=== PATIENT | female | born 1955 | race Caucasian/White ===

== ENCOUNTER 2017-12-04 13:15 | Inpatient (IN) | payer BC, OTHER ==
[2017-12-04] MEDS ORDERED: NORMAL SALINE 1000 ML 2,000 ML IV ONE (13:30)
--- NOTE | 2017-12-04 13:33 | ER Document Report ---
ED Medical Screen (RME) - General Chief Complaint: Nausea/Vomiting/Diarrhea Stated Complaint: BACK PAIN, DIARRHEA Time Seen by Provider: 12/04/17 13:29 Mode of Arrival: Wheelchair Information source: Patient Notes: 62 yo female with vomiting, diarrhea, back pain for 4 days. Pale. Also having trouble breathing- hx copd. hypotensive. Will need imaging but /chestabd exam needs to be done first. TRAVEL OUTSIDE OF THE [place] IN LAST 30 DAYS: No - Related Data Allergies/Adverse Reactions: No Known Drug Allergies Allergy (Verified 11/01/15 10:52) Past Medical History - Past Medical History Cardiac Medical History: Reports: Hx Heart Attack - NSTEMI? Pulmonary Medical History: Reports: Hx Bronchitis, Hx COPD GI Medical History: Reports: Hx Hepatitis - Hepatitis C Psychiatric Medical History: Reports: Hx Depression Infectious Medical History: Reports: Hx Hepatitis - Hepatitis C Past Surgical History: Reports: Hx Section, Hx Thyroid Surgery - Immunizations Hx Diphtheria, Pertussis, Tetanus Vaccination: - Unknown Physical Exam - Vital signs Vitals: Temp Pulse Resp BP Pulse Ox 98.4 F 113 H 20 70/54 L 100 12/04/17 13:19 12/04/17 13:19 12/04/17 13:19 12/04/17 13:19 12/04/17 13:19 Course - Vital Signs Vital signs: Temp Pulse Resp BP Pulse Ox 98.4 F 113 H 20 70/54 L 100 12/04/17 13:19 12/04/17 13:19 12/04/17 13:19 12/04/17 13:19 12/04/17 13:19 Doctor's Discharge - Discharge Referrals: LUCIANA SANCHEZ MD [Primary Care Provider] - Follow up as needed
[2017-12-04 14:23] LABS: VENOUS BLOOD BASE EXCESS -4.4 mmol/L; VENOUS BLOOD HCO3 20.6 mmol/L (20-32); VENOUS BLOOD PCO2 37.6 mmHg (35-63); VENOUS BLOOD PH 7.36 (7.30-7.42)
[2017-12-04 14:31] LABS: HEMATOCRIT 33.5 % (36.0-47.0); HEMOGLOBIN 11.6 g/dL (12.0-15.5); MEAN CORPUSCULAR HEMOGLOBIN 34.1 pg (27.0-33.4); MEAN CORPUSCULAR HGB CONC 34.6 g/dL (32.0-36.0); MEAN CORPUSCULAR VOLUME 98 fl (80-97); PLATELET COUNT 326 10^3/uL (150-450); RED CELL DISTRIBUTION WIDTH 12.5 % (11.5-14.0); WHITE BLOOD COUNT 20.5 10^3/uL (4.0-10.5)
[2017-12-04 14:38] LABS: ALANINE AMINOTRANSFERASE 32 U/L (9-52); ALBUMIN 3.5 g/dL (3.5-5.0); ALKALINE PHOSPHATASE 88 U/L (38-126); ANION GAP 16 (5-19); ASPARTATE AMINO TRANSFERASE 17 U/L (14-36); BILIRUBIN,DIRECT 0.7 mg/dL (0.0-0.4); BILIRUBIN,TOTAL 2.8 mg/dL (0.2-1.3); BLOOD UREA NITROGEN 31 mg/dL (7-20); CALCIUM 9.3 mg/dL (8.4-10.2); CARBON DIOXIDE 20 mmol/L (22-30); CHLORIDE 100 mmol/L (98-107); GLUCOSE 105 mg/dL (75-110); POTASSIUM 3.8 mmol/L (3.6-5.0); SODIUM 135.6 mmol/L (137-145); TOTAL PROTEIN 6.5 g/dL (6.3-8.2)
[2017-12-04 14:45] LABS: LIPASE < 10.0 U/L (23-300)
[2017-12-04 14:53] LABS: ABSOLUTE LYMPHOCYTES# (MANUAL) 0.6 10^3/uL (0.5-4.7); ABSOLUTE MONOCYTES # (MANUAL) 0.6 10^3/uL (0.1-1.4); ABSOLUTE NEUTROPHILS# (MANUAL) 19.3 10^3/uL (1.7-8.2); BAND NEUTROPHILS % (MANUAL) 8 % (3-5); BASOPHILS % (MANUAL) 0 % (0-2); EOSINOPHILS % (MANUAL) 0 % (0-6); LYMPHOCYTES % (MANUAL) 3 % (13-45); MONOCYTES % (MANUAL) 3 % (3-13); SEGMENTED NEUTROPHILS % (MAN) 86 % (42-78); TOTAL CELLS COUNTED 100
[2017-12-04 14:54] LABS: PLATELET COMMENT ADEQUATE; PLATELET GIANT PRESENT; POLYCHROMASIA SLIGHT
[2017-12-04] MEDS ORDERED: NORMAL SALINE 1000 ML 1,000 ML IV ONE (15:42)
[2017-12-04] MEDS ORDERED: PIPERACILLIN/TAZOBACTAM 3.375 GM VIAL IV ONE (15:42)
[2017-12-04] MEDS ORDERED: ONDANSETRON HCL INJ/PF 4 MG/2 ML SDV IV ONE (15:47)
--- NOTE | 2017-12-04 15:51 | ER Document Report ---
ED General - General Chief Complaint: Nausea/Vomiting/Diarrhea Stated Complaint: BACK PAIN, DIARRHEA Time Seen by Provider: 12/04/17 13:29 Mode of Arrival: Wheelchair Information source: Patient, Relative TRAVEL OUTSIDE OF THE [place] IN LAST 30 DAYS: No - HPI Onset: Other - 3 days Onset/Duration: Gradual, Constant Quality of pain: No pain Severity: None Pain Level: Denies Associated symptoms: Diarrhea, Nausea, Vomiting Exacerbated by: Denies Relieved by: Denies Similar symptoms previously: No Recently seen / treated by doctor: No - Related Data Allergies/Adverse Reactions: No Known Drug Allergies Allergy (Verified 11/01/15 10:52) Past Medical History - General Information source: Patient - Social History Smoking Status: Unknown if Ever Smoked Family History: Reviewed & Not Pertinent Patient has suicidal ideation: No Patient has homicidal ideation: No - Past Medical History Cardiac Medical History: Reports: Hx Heart Attack - NSTEMI? Pulmonary Medical History: Reports: Hx Bronchitis, Hx COPD Renal/ Medical History: Denies: Hx Peritoneal Dialysis GI Medical History: Reports: Hx Hepatitis - Hepatitis C Psychiatric Medical History: Reports: Hx Depression Infectious Medical History: Reports: Hx Hepatitis - Hepatitis C Past Surgical History: Reports: Hx Section, Hx Thyroid Surgery - Immunizations Hx Diphtheria, Pertussis, Tetanus Vaccination: - Unknown Hx Pneumococcal Vaccination: 04/05/15 Review of Systems - Review of Systems Constitutional: Weakness. denies: Chills, Fever EENT: No symptoms reported Cardiovascular: denies: Chest pain, Palpitations Respiratory: Short of breath Gastrointestinal: Diarrhea, Nausea, Vomiting. denies: Abdomen distended, Abdominal pain Genitourinary: No symptoms reported Female Genitourinary: No symptoms reported Musculoskeletal: Back pain. denies: Muscle pain, Muscle stiffness Skin: No symptoms reported Hematologic/Lymphatic: denies: Easy bleeding, Easy bruising Neurological/Psychological: No symptoms reported -: Yes All other systems reviewed and negative Physical Exam - Vital signs Vitals: Temp Pulse Resp BP Pulse Ox 98.4 F 113 H 20 70/54 L 100 12/04/17 13:19 12/04/17 13:19 12/04/17 13:19 12/04/17 13:19 12/04/17 13:19 Interpretation: Hypotensive - General General appearance: Alert In distress: None - HEENT Head: Normocephalic, Atraumatic Eyes: Normal Conjunctiva: Normal Cornea: Normal Extraocular movements intact: Yes Eyelashes: Normal Sinus: Normal Nasal: Normal Mucous membranes: Dry Pharynx: Normal Neck: Normal - Respiratory Respiratory status: No respiratory distress Chest status: Nontender Breath sounds: Normal Chest palpation: Normal - Cardiovascular Rhythm: Tachycardia Heart sounds: Normal auscultation Murmur: No Normal capillary refill: Yes - Abdominal Inspection: Normal Distension: No distension Bowel sounds: Hyperactive Tenderness: Tender - RLQ. No: Rebound Organomegaly: No organomegaly - Back Back: Normal. No: Vertebra tenderness - Extremities General upper extremity: Normal inspection, Nontender, Normal color, Normal ROM , Normal temperature General lower extremity: Normal inspection, Nontender, Normal color, Normal ROM , Normal temperature, Normal weight bearing. No: Dominic's sign - Neurological Neuro grossly intact: Yes Cognition: Normal Orientation: AAOx4 [place] Coma Scale Eye Opening: Spontaneous [place] Coma Scale Verbal: Oriented [place] Coma Scale Motor: Obeys Commands [place] Coma Scale Total: 15 Speech: Normal Motor strength normal: LUE, RUE, LLE, RLE Sensory: Normal - Psychological Associated symptoms: Normal affect, Normal mood - Skin Skin Temperature: Warm Skin Moisture: Dry Skin Color: Normal Course - Vital Signs Vital signs: Temp Pulse Resp BP Pulse Ox 98.4 F 113 H 25 H 91/60 L 100 12/04/17 13:19 12/04/17 13:19 12/04/17 19:01 12/04/17 19:01 12/04/17 19:01 - Laboratory Result Diagrams: 12/04/17 13:48 12/04/17 13:48 Laboratory results interpreted by me: 12/04/17 12/04/17 12/04/17 13:48 13:48 15:50 WBC 20.5 H RBC 3.40 L Hgb 11.6 L Hct 33.5 L MCV 98 H MCH 34.1 H Seg Neuts % (Manual) 86 H Band Neutrophils % 8 H Lymphocytes % (Manual) 3 L Abs Neuts (Manual) 19.3 H Sodium 135.6 L Carbon Dioxide 20 L BUN 31 H Creatinine 2.27 H Est GFR ( Amer) 26 L Est GFR (Non-Af Amer) 22 L Total Bilirubin 2.8 H Direct Bilirubin 0.7 H Lipase < 10.0 L Urine Protein 100 H Urine Glucose (UA) 50 H Urine Blood MODERATE H - EKG Interpretation by Me EKG shows normal: Sinus rhythm Rate: Tachycardia - 100 When compared to previous EKG there are: Previous EKG unavailable Additional EKG results interpreted by me: 12/04/17 19:41 No STEMI Discharge - Discharge Clinical Impression: MARGOT (acute kidney injury), Dehydration Nausea and vomiting Qualifiers: Vomiting type: unspecified Vomiting Intractability: intractable Qualified Code( s): R11.2 - Nausea with vomiting, unspecified Leukocytosis Qualifiers: Leukocytosis type: unspecified Qualified Code(s): D72.829 - Elevated white blood cell count, unspecified Pneumonia Qualifiers: Pneumonia type: due to unspecified organism Laterality: right Lung location: middle lobe of lung Qualified Code(s): J18.1 - Lobar pneumonia, unspecified organism Condition: Fair Disposition: ADMITTED INPATIENT Admitting Provider: Hospitalist Unit Admitted: Telemetry
[2017-12-04 16:32] LABS: APPEARANCE,URINE CLOUDY; BILIRUBIN,URINE NEGATIVE (NEGATIVE); COLOR,URINE YELLOW; GLUCOSE, URINE 50 mg/dL (NEGATIVE); KETONES,URINE NEGATIVE (NEGATIVE); LEUKOCYTE ESTERASE,URINE NEGATIVE (NEGATIVE); NITRITE,URINE NEGATIVE (NEGATIVE); PROTEIN,URINE 100 mg/dL (NEGATIVE); URINE SPECIFIC GRAVITY 1.009; UROBILINOGEN,URINE NEGATIVE mg/dL (<2.0)
--- NOTE | 2017-12-04 16:40 | RADIOLOGY REPORT (SQ) ---
EXAM DESCRIPTION: CHEST SINGLE VIEW COMPLETED DATE/TIME: 12/04/2017 4:30 pm REASON FOR STUDY: vomiting COMPARISON: 11/02/2015 EXAM PARAMETERS: NUMBER OF VIEWS: One view. TECHNIQUE: Single frontal radiographic view of the chest acquired. RADIATION DOSE: NA LIMITATIONS: None. FINDINGS: LUNGS AND PLEURA: New consolidation through the right mid lung field. COPD. Left lung fi eld clear. MEDIASTINUM AND HILAR STRUCTURES: No masses. Contour normal. HEART AND VASCULAR STRUCTURES: Heart normal in size. Normal vasculature. BONES: No acute findings. HARDWARE: None in the chest. OTHER: No other significant finding. IMPRESSION: COPD. Consolidation through the right mid lung field. TECHNICAL DOCUMENTATION: JOB ID: [id number] [employer]- All Rights Reserved Reading location - IP/workstation name: [email or web address]
[2017-12-04] MEDS ORDERED: ONDANSETRON 4 MG TAB.RAPDIS PO PRN (18:35)
--- NOTE | 2017-12-04 18:35 | PDOC H&P ---
History of Present Illness Admission Date/PCP: DARINEL MIRANDA MD History of Present Illness: YANCY HAYES is a 62 year old female patient whose past medical history of chronic respiratory failure O2 dependent, COPD, tobacco dependence, depression and hepatitis C presents with chief complaint of nausea, vomiting and diarrhea of 3 days duration. Patient has associated shortness of breath dry cough and subjective fever. She claims Ms. she had been treated with antibiotics the last 90 days. She describes the diarrhea watery and foul- smelling and too frequent to count. Her blood work shows leukocytosis of 20, 000 and creatinine of 2.3. Past Medical History Cardiac Medical History: Reports: Myocardial Infarction - NSTEMI? Pulmonary Medical History: Reports: Bronchitis, Chronic Obstructive Pulmonary Disease (COPD) GI Medical History: Reports: Hepatitis - Hepatitis C Psychiatric Medical History: Reports: Depression Past Surgical History Past Surgical History: Reports: Section Social History Smoking Status: Current Every Day Smoker Frequency of Alcohol Use: None Hx Recreational Drug Use: No Drugs: None Hx Prescription Drug Abuse: No - Advance Directive Resuscitation Status: Full Code Family History Family History: Reviewed & Not Pertinent, Malignancy Parental Family History Reviewed: Yes Children Family History Reviewed: Yes Sibling(s) Family History Reviewed.: Yes Medication/Allergy Home Medications: Albuterol Sulfate [Proair Respiclick] 2 puff IH Q6 PRN 08/02/15 Citalopram Hydrobromide [Celexa] 1 tab PO DAILY 08/02/15 Lorazepam [Ativan 0.5 mg Tablet] 0.5 mg PO Q8 PRN 08/02/15 Montelukast Sodium [Singulair] 10 mg PO QHS 11/01/15 Albuterol Sulfate [Albuterol Sulfate 2.5mg/3 mL] 1 vial IH QID #30 vial Budesonide/Formoterol Fumarate [Symbicort HFA 160-4.5 mcg Inhaler 6 gm] 2 puff IH Q12 #1 inhaler 11/08/15 Prednisone 20 mg PO ASDIR PRN #50 tablet 11/08/15 Tiotropium [place] [Spiriva Respimat] 2 puff IH QAM #1 inhaler 11/08/15 Allergies/Adverse Reactions: No Known Drug Allergies Allergy (Verified 11/01/15 10:52) Review of Systems Constitutional: PRESENT: as per HPI Eyes: PRESENT: as per HPI Cardiovascular: PRESENT: as per HPI Respiratory: PRESENT: as per HPI Gastrointestinal: PRESENT: as per HPI Physical Exam Vital Signs: Temp Pulse Resp BP Pulse Ox 98.4 F 113 H 26 H 93/55 L 95 12/04/17 13:19 12/04/17 13:19 12/04/17 15:01 12/04/17 15:01 12/04/17 15:01 Intake & Output 12/03/17 12/04/17 12/05/17 06:59 06:59 06:59 Intake Total 1715 Balance 1715 Weight 55.9 kg General appearance: PRESENT: mild distress Head exam: PRESENT: atraumatic Eye exam: PRESENT: conjunctiva pink Neck exam: ABSENT: carotid bruit, JVD, lymphadenopathy, thyromegaly Respiratory exam: PRESENT: decreased breath sounds, rales, wheezes GI/Abdominal exam: PRESENT: normal bowel sounds, soft. ABSENT: distended, guarding, mass, organolmegaly, rebound, tenderness Neurological exam: PRESENT: alert, awake, oriented to time, oriented to situation Psychiatric exam: PRESENT: normal mood Results Laboratory Results: 12/04/17 13:48 12/04/17 13:48 12/04/17 12/04/17 12/04/17 13:48 13:48 13:48 WBC 20.5 H RBC 3.40 L Hgb 11.6 L Hct 33.5 L MCV 98 H MCH 34.1 H MCHC 34.6 RDW 12.5 Plt Count 326 Seg Neutrophils % Not Reportable Lymphocytes % Not Reportable Monocytes % Not Reportable Eosinophils % Not Reportable Basophils % Not Reportable Absolute Neutrophils Not Reportable Absolute Lymphocytes Not Reportable Absolute Monocytes Not Reportable Absolute Eosinophils Not Reportable Absolute Basophils Not Reportable VBG pH VBG pCO2 VBG HCO3 VBG Base Excess Sodium 135.6 L Potassium 3.8 Chloride 100 Carbon Dioxide 20 L Anion Gap 16 BUN 31 H Creatinine 2.27 H Est GFR ( Amer) 26 L Est GFR (Non-Af Amer) 22 L Glucose 105 Lactic Acid 1.5 Calcium 9.3 Total Bilirubin 2.8 H AST 17 ALT 32 Alkaline Phosphatase 88 Total Protein 6.5 Albumin 3.5 Lipase < 10.0 L Urine Color Urine Appearance Urine pH Ur Specific [place] Urine Protein Urine Glucose (UA) Urine Ketones Urine Blood Urine Nitrite Ur Leukocyte Esterase Urine WBC (Auto) Urine RBC (Auto) 12/04/17 12/04/17 13:48 15:50 WBC RBC Hgb Hct MCV MCH MCHC RDW Plt Count Seg Neutrophils % Lymphocytes % Monocytes % Eosinophils % Basophils % Absolute Neutrophils Absolute Lymphocytes Absolute Monocytes Absolute Eosinophils Absolute Basophils VBG pH 7.36 VBG pCO2 37.6 VBG HCO3 20.6 VBG Base Excess -4.4 Sodium Potassium Chloride Carbon Dioxide Anion Gap BUN Creatinine Est GFR ( Amer) Est GFR (Non-Af Amer) Glucose Lactic Acid Calcium Total Bilirubin AST ALT Alkaline Phosphatase Total Protein Albumin Lipase Urine Color YELLOW Urine Appearance CLOUDY Urine pH 5.0 Ur Specific [place] 1.009 Urine Protein 100 H Urine Glucose (UA) 50 H Urine Ketones NEGATIVE Urine Blood MODERATE H Urine Nitrite NEGATIVE Ur Leukocyte Esterase NEGATIVE Urine WBC (Auto) 23 Urine RBC (Auto) 1 12/04/17 13:48 Troponin I < 0.012 Impressions: Chest X-Ray 12/04/17 15:41 IMPRESSION: COPD. Consolidation through the right mid lung field. Assessment & Plan - Diagnosis (1) Severe sepsis Is this a current diagnosis for this admission?: Yes Plan: Patient has hypotension apnea, leukocytosis, tachycardia. Patient has been started on Levaquin (2) Pneumonia involving right lung Is this a current diagnosis for this admission?: Yes Plan: Community-acquired right lung pneumonia. Patient has been started on Levaquin She is also on supplemental oxygen. (3) Acute kidney injury due to dehydration Is this a current diagnosis for this admission?: Yes Plan: We will gently hydrate the patient. We will avoid nephrotoxic agent is and will monitor her renal function. (4) Diarrhea Is this a current diagnosis for this admission?: Yes Plan: Possible gastroenteritis. We will hydrate the patient also will do stool for C. difficile colitis (5) Hepatitis C Qualifiers: Viral hepatitis chronicity: chronic Is this a current diagnosis for this admission?: Yes Plan: Follow-up with her primary care physician. (6) Depression Is this a current diagnosis for this admission?: Yes Plan: Currently in remission and will continue her home medications. (7) Tobacco dependence Is this a current diagnosis for this admission?: Yes Plan: Patient advised and encouraged to quit smoking.
[2017-12-04] MEDS ORDERED: (PENDING PHARMACY ID) (Citalopram Hydrobromide [Celexa 10 Mg Tablet] 10 MG) PO SCH (18:45)
[2017-12-04] MEDS ORDERED: (PENDING PHARMACY ID) (Tiotropium Bromide [Spiriva Respimat] 2 PUFF) IH SCH (18:45)
--- NOTE | 2017-12-04 19:30 | RADIOLOGY REPORT (SQ) ---
EXAM DESCRIPTION: CT CHEST WITHOUT COMPLETED DATE/TIME: 12/04/2017 6:27 pm REASON FOR STUDY: Shortness of breath COMPARISON: Chest x-ray 12/04/2017 TECHNIQUE: CT scan performed of the chest without intravenous contrast. Images reviewed with lung, soft tissue and bone windows. Reconstructed coronal and sagittal MPR images reviewed. All images st ored on PACS. All CT scanners at this facility use dose modulation, iterative reconstruction, and/or weight based d osing when appropriate to reduce radiation dose to as low as reasonably achievable (ALARA). [facility]: Dose Right [facility]: CareDose [facility]: Dose Right [facility]: Teradose 4D [facility]: [employer] RADIATION DOSE: mGy. LIMITATIONS: No technical limitations. FINDINGS: LUNGS AND PLEURA: There is considerable opacification in the posterior segments of the rig ht upper lobe and in the middle lobe. Extensive pulmonary emphysema is present. There is no pleural effusion. HILAR AND MEDIASTINAL STRUCTURES: No identified masses or abnormal nodes. No obvious aneurysm. HEART AND VASCULAR STRUCTURES: No aneurysm. No pericardial effusion. UPPER ABDOMEN: See separate report of the CT of the abdomen. THYROID AND OTHER SOFT TISSUES: No masses. No adenopathy. BONES: No significant finding. HARDWARE: None in the chest. OTHER: No other significant findings. IMPRESSION: Pulmonary emphysema with right upper lobe and middle lobe pneumonia. TECHNICAL DOCUMENTATION: JOB ID: [id number] Quality ID # [id number]: Final reports with documentation of one or more dose reduction techniques (e.g., Au tomated exposure control, adjustment of the mA and/or kV according to patient size, use of iterative reconstruction technique) 2010 [employer]- All Rights Reserved Reading location - IP/workstation name: [email or web address]
--- NOTE | 2017-12-04 19:35 | RADIOLOGY REPORT (SQ) ---
EXAM DESCRIPTION: CT ABD/PELVIS ORAL ONLY COMPLETED DATE/TIME: 12/04/2017 6:27 pm REASON FOR STUDY: nausea and vomiting COMPARISON: None. TECHNIQUE: CT scan of the abdomen and pelvis performed without intravenous contrast. Oral contrast was administered. Images reviewed with lung, soft tissue, and bone windows. Reconstructed coronal an d sagittal MPR images reviewed. All images stored on PACS. All CT scanners at this facility use dose modulation, iterative reconstruction, and/or weight based d osing when appropriate to reduce radiation dose to as low as reasonably achievable (ALARA). [facility]: Dose Right [facility]: CareDose [facility]: Dose Right [facility]: Teradose 4D [facility]: [employer] RADIATION DOSE: CT Rad equipment meets quality standard of care and radiation dose reduction techniq ues were employed. CTDIvol: 5.0 mGy. DLP: 345 mGy-cm.mGy. LIMITATIONS: None. FINDINGS: LOWER CHEST: See separate report of the CT of the chest. NON-CONTRASTED LIVER, SPLEEN, ADRENALS: Evaluation limited by lack of IV contrast. No identified sign ificant masses. PANCREAS: No masses. No peripancreatic inflammatory changes. GALLBLADDER: Distended gallbladder with some small faintly calcified gallstones. RIGHT KIDNEY AND URETER: No suspicious masses. Assessment limited by lack of IV contrast. No signif icant calcifications. No hydronephrosis or hydroureter. LEFT KIDNEY AND URETER: No suspicious masses. Assessment limited by lack of IV contrast. No signifi cant calcifications. No hydronephrosis or hydroureter. AORTA AND RETROPERITONEUM: No aneurysm. No retroperitoneal masses or adenopathy. BOWEL AND PERITONEAL CAVITY: No obvious masses or inflammatory changes. No free fluid. APPENDIX: Not identified. PELVIS, BLADDER, AND ABDOMINAL WALL:There is a 5 cm left adnexal cyst. BONES: No significant findings. OTHER: No other significant finding. IMPRESSION: 1. Distended gallbladder with some small gallstones. 2. 5 cm left ovarian cyst. Recommend follow-up pelvic ultrasound. COMMENT: Quality ID # [id number]: Final reports with documentation of one or more dose reduction techniques (e.g., Automated exposure control, adjustment of the mA and/or kV according to patient size, use of iterative reconstruction technique) TECHNICAL DOCUMENTATION: JOB ID: [id number] [employer]- All Rights Reserved Reading location - IP/workstation name: [email or web address]
[2017-12-04] MEDS: IPRATROPIUM/ALBUTEROL 0.5-2.5 MG/3 ML AMPUL NEB SCH (20:46)
[2017-12-04] MEDS: LEVOFLOXACIN 750 MG/D5W RTU 750 MG/150 ML RTUPB IV SCH (21:12)
--- NOTE | 2017-12-04 21:47 | EKG REPORT ---
SEVERITY:- OTHERWISE NORMAL ECG - SINUS TACHYCARDIA ATRIAL PREMATURE COMPLEX : Confirmed by: Erik Powell 04-Dec-2017 21:47:20
[2017-12-04] MEDS ORDERED: (PENDING PHARMACY ID) (Fluticasone/Salmeterol [Advair Hfa 230-21 Mcg Inhaler] 2 PUFF) IH SCH (22:00)
[2017-12-04] MEDS: CLONAZEPAM 1 MG TABLET PO SCH (22:37)
[2017-12-04] MEDS: IPRATROPIUM BROMIDE 0.06% NASAL SPRAY 15 ML NASL SCH (22:39)
[2017-12-04] MEDS: CITALOPRAM HYDROBROMIDE 20 MG TABLET PO SCH (22:42)
[2017-12-04] MEDS: HEPARIN SOD (PORCINE) 5,000 UNIT/ML 1 ML SYRINGE SUBCUT SCH (22:44)
[2017-12-05] MEDS: NORMAL SALINE 1000 ML 1,000 ML IV PRN ×2 (00:09→21:44)
[2017-12-05] MEDS: OXYCODONE-ACETAMINOPHEN 5-325 MG TABLET PO PRN ×2 (00:13→16:59)
[2017-12-05] MEDS: IPRATROPIUM/ALBUTEROL 0.5-2.5 MG/3 ML AMPUL NEB SCH ×4 (01:05→20:16)
[2017-12-05 04:32] LABS: HEMATOCRIT 26.5 % (36.0-47.0); MEAN CORPUSCULAR HEMOGLOBIN 34.3 pg (27.0-33.4); MEAN CORPUSCULAR HGB CONC 34.2 g/dL (32.0-36.0); MEAN CORPUSCULAR VOLUME 100 fl (80-97); PLATELET COUNT 265 10^3/uL (150-450); RED BLOOD COUNT 2.64 10^6/uL (3.72-5.28); RED CELL DISTRIBUTION WIDTH 12.5 % (11.5-14.0); WHITE BLOOD COUNT 12.9 10^3/uL (4.0-10.5)
[2017-12-05 04:39] LABS: ANION GAP 15 (5-19); BLOOD UREA NITROGEN 30 mg/dL (7-20); CALCIUM 7.9 mg/dL (8.4-10.2); CARBON DIOXIDE 15 mmol/L (22-30); CHLORIDE 108 mmol/L (98-107); GLUCOSE 76 mg/dL (75-110); POTASSIUM 3.4 mmol/L (3.6-5.0); SODIUM 137.7 mmol/L (137-145)
[2017-12-05 05:26] LABS: HEMOGLOBIN 9.1 g/dL (12.0-15.5)
[2017-12-05 05:31] LABS: ABSOLUTE LYMPHOCYTES# (MANUAL) 0.5 10^3/uL (0.5-4.7); ABSOLUTE MONOCYTES # (MANUAL) 0.5 10^3/uL (0.1-1.4); ABSOLUTE NEUTROPHILS# (MANUAL) 11.9 10^3/uL (1.7-8.2); BASOPHILS % (MANUAL) 0 % (0-2); EOSINOPHILS % (MANUAL) 0 % (0-6); LYMPHOCYTES % (MANUAL) 4 % (13-45); MONOCYTES % (MANUAL) 4 % (3-13); SEGMENTED NEUTROPHILS % (MAN) 92 % (42-78); TOTAL CELLS COUNTED 100
[2017-12-05 05:32] LABS: PLATELET COMMENT ADEQUATE; PLATELET LARGE PRESENT; SCHISTOCYTES SLIGHT; TOXIC GRANULATION 1+
[2017-12-05] MEDS: IPRATROPIUM BROMIDE 0.06% NASAL SPRAY 15 ML NASL SCH ×3 (05:47→21:38)
[2017-12-05] MEDS: HEPARIN SOD (PORCINE) 5,000 UNIT/ML 1 ML SYRINGE SUBCUT SCH ×3 (05:47→21:38)
[2017-12-05] MEDS ORDERED: LANSOPRAZOLE 30 MG TAB.RAP.DR PO SCH (06:00)
[2017-12-05] MEDS: MONTELUKAST SODIUM 10 MG TABLET PO SCH (10:00)
[2017-12-05] MEDS ORDERED: (PENDING PHARMACY ID) (Roflumilast [Daliresp 500 Mcg Tablet] 500 MCG) PO SCH (10:00)
[2017-12-05] MEDS: CLONAZEPAM 1 MG TABLET PO SCH (10:00)
[2017-12-05] MEDS: CITALOPRAM HYDROBROMIDE 20 MG TABLET PO SCH (10:00)
[2017-12-05] MEDS: ROFLUMILAST 500 MCG TABLET PO SCH (10:00)
[2017-12-05] MEDS ORDERED: NORMAL SALINE 1000 ML 1,000 ML IV PRN (12:08)
[2017-12-05] MEDS ORDERED: IPRATROPIUM/ALBUTEROL 0.5-2.5 MG/3 ML AMPUL NEB ONE (16:41)
[2017-12-05] MEDS: PANTOPRAZOLE SODIUM 40 MG VIAL IV SCH (17:40)
[2017-12-05] MEDS: IPRATROPIUM/ALBUTEROL 0.5-2.5 MG/3 ML AMPUL NEB PRN (17:44)
--- NOTE | 2017-12-05 18:08 | PDOC PROGRESS REPORT ---
Subjective Subjective:: This is a 62 year old female patient whose past medical history of chronic respiratory failure O2 dependent, COPD, tobacco dependence, depression and hepatitis C presents with chief complaint of nausea, vomiting shortness of breath and diarrhea of 3 days duration. Her chest x-ray and CT scan are compatible with right upper and middle lobe pneumonia. Her white cell count is 20,000 at admission now it is 12.9 and she has also acute kidney injury with creatinine of 2.27 now 2.04. For her pneumonia patient has been treated on Levaquin. This morning I seen patient resting in bed comfortably and she reports this her diarrhea and her shortness of breath is getting better. Reason For Visit: RIGHT LUNG PNEUMONIA,LEUKOCYTOSIS,ACUTE KIDNEY Physical Exam Vital Signs: Temp Pulse Resp BP Pulse Ox 98.5 F 119 H 20 87/53 L 94 12/05/17 15:15 12/05/17 17:44 12/05/17 17:44 12/05/17 15:15 12/05/17 17:44 Intake & Output 12/04/17 12/05/17 12/06/17 06:59 06:59 06:59 Intake Total 1150 1600 Balance 1150 1600 Weight 61.4 kg General appearance: PRESENT: mild distress Head exam: PRESENT: atraumatic Eye exam: PRESENT: conjunctiva pink Mouth exam: PRESENT: moist Neck exam: ABSENT: carotid bruit, JVD, lymphadenopathy, thyromegaly Respiratory exam: PRESENT: crackles, rhonchi, wheezes Cardiovascular exam: PRESENT: RRR. ABSENT: diastolic murmur, rubs, systolic murmur Results Laboratory Results: 12/05/17 04:05 12/05/17 04:05 12/05/17 12/05/17 12/05/17 04:05 04:05 04:05 WBC 12.9 H RBC 2.64 L Hgb 9.1 L D Hct 26.5 L MCV 100 H MCH 34.3 H MCHC 34.2 RDW 12.5 Plt Count 265 Seg Neutrophils % Not Reportable Lymphocytes % Not Reportable Monocytes % Not Reportable Eosinophils % Not Reportable Basophils % Not Reportable Absolute Neutrophils Not Reportable Absolute Lymphocytes Not Reportable Absolute Monocytes Not Reportable Absolute Eosinophils Not Reportable Absolute Basophils Not Reportable Sodium 137.7 Potassium 3.4 L Chloride 108 H Carbon Dioxide 15 L Anion Gap 15 BUN 30 H Creatinine 2.04 H Est GFR ( Amer) 30 L Est GFR (Non-Af Amer) 25 L Glucose 76 Calcium 7.9 L TSH 0.17 L Impressions: Abdomen/Pelvis CT 12/04/17 15:40 IMPRESSION: 1. Distended gallbladder with some small gallstones. 2. 5 cm left ovarian cyst. Recommend follow-up pelvic ultrasound. Chest X-Ray 12/04/17 15:41 IMPRESSION: COPD. Consolidation through the right mid lung field. Chest CT 12/04/17 18:00 IMPRESSION: Pulmonary emphysema with right upper lobe and middle lobe pneumonia. Assessment & Plan - Diagnosis (1) Severe sepsis Is this a current diagnosis for this admission?: Yes Plan: Patient still has hypotension. I started her on normal saline at a rate of 1 25 /h. (2) Pneumonia involving right lung Is this a current diagnosis for this admission?: Yes Plan: Continue Levaquin (3) Acute kidney injury due to dehydration Is this a current diagnosis for this admission?: Yes Plan: Improving slightly (4) Diarrhea Is this a current diagnosis for this admission?: Yes Plan: Possible gastroenteritis. We will hydrate the patient also will do stool for C. difficile colitis (5) Hepatitis C Qualifiers: Viral hepatitis chronicity: chronic Is this a current diagnosis for this admission?: Yes Plan: Follow-up with her primary care physician. (6) Depression Is this a current diagnosis for this admission?: Yes Plan: Currently in remission and will continue her home medications. (7) Tobacco dependence Is this a current diagnosis for this admission?: Yes Plan: Patient advised and encouraged to quit smoking.
[2017-12-06] MEDS: IPRATROPIUM/ALBUTEROL 0.5-2.5 MG/3 ML AMPUL NEB SCH ×4 (02:09→19:32)
[2017-12-06] MEDS: OXYCODONE-ACETAMINOPHEN 5-325 MG TABLET PO PRN ×2 (03:54→22:07)
[2017-12-06] MEDS: HEPARIN SOD (PORCINE) 5,000 UNIT/ML 1 ML SYRINGE SUBCUT SCH ×3 (05:32→22:07)
[2017-12-06] MEDS: PANTOPRAZOLE SODIUM 40 MG VIAL IV SCH ×2 (05:32→18:24)
[2017-12-06] MEDS: IPRATROPIUM BROMIDE 0.06% NASAL SPRAY 15 ML NASL SCH ×3 (05:32→22:08)
[2017-12-06] MEDS: NORMAL SALINE 1000 ML 1,000 ML IV PRN ×3 (05:35→22:09)
[2017-12-06 06:22] LABS: HEMATOCRIT 23.2 % (36.0-47.0); HEMOGLOBIN 8.1 g/dL (12.0-15.5); MEAN CORPUSCULAR HEMOGLOBIN 34.9 pg (27.0-33.4); MEAN CORPUSCULAR HGB CONC 35.1 g/dL (32.0-36.0); MEAN CORPUSCULAR VOLUME 100 fl (80-97); PLATELET COUNT 258 10^3/uL (150-450); RED BLOOD COUNT 2.33 10^6/uL (3.72-5.28); RED CELL DISTRIBUTION WIDTH 12.8 % (11.5-14.0)
[2017-12-06 06:28] LABS: ANION GAP 11 (5-19); BLOOD UREA NITROGEN 27 mg/dL (7-20); CALCIUM 7.7 mg/dL (8.4-10.2); CARBON DIOXIDE 16 mmol/L (22-30); CHLORIDE 113 mmol/L (98-107); GLUCOSE 90 mg/dL (75-110); POTASSIUM 3.3 mmol/L (3.6-5.0); SODIUM 139.6 mmol/L (137-145)
[2017-12-06 06:44] LABS: ABSOLUTE LYMPHOCYTES# (MANUAL) 0.5 10^3/uL (0.5-4.7); ABSOLUTE MONOCYTES # (MANUAL) 0.8 10^3/uL (0.1-1.4); ABSOLUTE NEUTROPHILS# (MANUAL) 7.7 10^3/uL (1.7-8.2); BASOPHILS % (MANUAL) 0 % (0-2); BURR CELLS SLIGHT; EOSINOPHILS % (MANUAL) 1 % (0-6); LYMPHOCYTES % (MANUAL) 5 % (13-45); MONOCYTES % (MANUAL) 9 % (3-13); POIKILOCYTOSIS SLIGHT; POLYCHROMASIA SLIGHT; SCHISTOCYTES SLIGHT; SEGMENTED NEUTROPHILS % (MAN) 85 % (42-78); TOTAL CELLS COUNTED 100; TOXIC GRANULATION SLIGHT
[2017-12-06 06:45] LABS: PLATELET COMMENT ADEQUATE
[2017-12-06] MEDS: CITALOPRAM HYDROBROMIDE 20 MG TABLET PO SCH (10:56)
[2017-12-06] MEDS: CLONAZEPAM 1 MG TABLET PO SCH (10:56)
[2017-12-06] MEDS: MONTELUKAST SODIUM 10 MG TABLET PO SCH (10:56)
[2017-12-06] MEDS: ROFLUMILAST 500 MCG TABLET PO SCH (10:57)
--- NOTE | 2017-12-06 13:32 | PDOC PROGRESS REPORT ---
Subjective Progress Note for:: 12/06/17 Subjective:: 62 year old female patient with history of chronic respiratory failur pre O2 dependent, COPD, tobacco dependence, depression and hepatitis C presents who presented with 3-day nausea, vomiting, shortness of breath and diarrhea. Her chest x-ray and CT scan were significant for right upper and middle lobe pneumonia. She had leukocytosis of 20,000 at admission as well as acute kidney injury with creatinine of 2.27. For her pneumonia patient has been treated on Levaquin and leukocytosis improving. Also treated with IV fluid and creatinine has improved. Today she still complains of cough, fatigue, shortness of breath with minimal exertion. No fever or chills, no chest pain or palpitations. Denies lower extremity edema. No orthopnea or PND. Reason For Visit: RIGHT LUNG PNEUMONIA,LEUKOCYTOSIS,ACUTE KIDNEY Physical Exam Vital Signs: Temp Pulse Resp BP Pulse Ox 98.1 F 102 H 24 H 102/55 L 91 L 12/06/17 10:53 12/06/17 10:53 12/06/17 10:53 12/06/17 10:53 12/06/17 10:53 Intake & Output 12/05/17 12/06/17 12/07/17 06:59 06:59 06:59 Intake Total 1150 3581 Balance 1150 3581 Weight 61.4 kg General appearance: PRESENT: mild distress Head exam: PRESENT: atraumatic Eye exam: PRESENT: conjunctiva pink Mouth exam: PRESENT: moist Neck exam: ABSENT: carotid bruit, JVD, lymphadenopathy, thyromegaly Respiratory exam: PRESENT: crackles, rhonchi, few wheezes Cardiovascular exam: PRESENT: RRR. ABSENT: diastolic murmur, rubs, systolic murmur Neurologic exam: PRESENT: Alert and oriented 3. ABSENT: Weakness Results Laboratory Results: 12/06/17 05:49 12/06/17 05:49 12/06/17 12/06/17 05:49 05:49 WBC 9.0 RBC 2.33 L Hgb 8.1 L Hct 23.2 L MCV 100 H MCH 34.9 H MCHC 35.1 RDW 12.8 Plt Count 258 Seg Neutrophils % Not Reportable Lymphocytes % Not Reportable Monocytes % Not Reportable Eosinophils % Not Reportable Basophils % Not Reportable Absolute Neutrophils Not Reportable Absolute Lymphocytes Not Reportable Absolute Monocytes Not Reportable Absolute Eosinophils Not Reportable Absolute Basophils Not Reportable Sodium 139.6 Potassium 3.3 L Chloride 113 H Carbon Dioxide 16 L Anion Gap 11 BUN 27 H Creatinine 1.35 H Est GFR ( Amer) 48 L Est GFR (Non-Af Amer) 40 L Glucose 90 Calcium 7.7 L Impressions: Abdomen/Pelvis CT 12/04/17 15:40 IMPRESSION: 1. Distended gallbladder with some small gallstones. 2. 5 cm left ovarian cyst. Recommend follow-up pelvic ultrasound. Chest X-Ray 12/04/17 15:41 IMPRESSION: COPD. Consolidation through the right mid lung field. Chest CT 12/04/17 18:00 IMPRESSION: Pulmonary emphysema with right upper lobe and middle lobe pneumonia. Assessment & Plan - Diagnosis (1) Pneumonia Qualifiers: Pneumonia type: due to unspecified organism Laterality: right Lung location: middle lobe of lung Qualified Code(s): J18.1 - Lobar pneumonia, unspecified organism Is this a current diagnosis for this admission?: Yes Plan: Slowly improving. Leukocytosis has resolved. We will continue Levaquin for now. We will also continue O2, nebulizers as patient's to quite symptomatic. We will continue IV fluids for now for treatment of MARGOT and as patient still with relative hypotension. Of note is that lactic acid normal at 1.5. (2) Leukocytosis Qualifiers: Leukocytosis type: unspecified Qualified Code(s): D72.829 - Elevated white blood cell count, unspecified Is this a current diagnosis for this admission?: Yes Plan: Secondary to pneumonia. Leukocytosis improved. Continue on Levaquin for treatment of pneumonia. (3) MARGOT (acute kidney injury) Is this a current diagnosis for this admission?: Yes Plan: Continues to improve. Continue IV fluids for now. Follow-up Chem-7 in a.m. (4) Anemia Is this a current diagnosis for this admission?: Yes Plan: Unsure of etiology at this time. MCV is slightly high. Will check anemia panel. Also guaiac stools. Follow-up CBC in a.m. Labs for type and screen. (5) Hepatitis C Qualifiers: Viral hepatitis chronicity: chronic Is this a current diagnosis for this admission?: Yes (6) Tobacco dependence Is this a current diagnosis for this admission?: Yes Plan: Smoking cessation counseling. (7) Hypokalemia Is this a current diagnosis for this admission?: Yes Plan: Slightly low. Will treat with KCl 40 M EQ p.o. 1. Follow-up Chem-7 in a.m.
[2017-12-06] MEDS ORDERED: POTASSIUM CHLORIDE 10 MEQ CAPSULE.ER PO ONE (13:45)
[2017-12-06] MEDS: LEVOFLOXACIN 750 MG/D5W RTU 750 MG/150 ML RTUPB IV SCH (22:07)
[2017-12-06] MEDS: IPRATROPIUM/ALBUTEROL 0.5-2.5 MG/3 ML AMPUL NEB PRN (22:30)
[2017-12-07] MEDS: IPRATROPIUM/ALBUTEROL 0.5-2.5 MG/3 ML AMPUL NEB SCH ×3 (01:13→13:49)
[2017-12-07 05:22] LABS: HEMATOCRIT 21.6 % (36.0-47.0); MEAN CORPUSCULAR HEMOGLOBIN 34.7 pg (27.0-33.4); MEAN CORPUSCULAR HGB CONC 34.7 g/dL (32.0-36.0); MEAN CORPUSCULAR VOLUME 100 fl (80-97); PLATELET COUNT 261 10^3/uL (150-450); RED BLOOD COUNT 2.16 10^6/uL (3.72-5.28); RED CELL DISTRIBUTION WIDTH 13.1 % (11.5-14.0); RETICULOCYTE COUNT (AUTO) 1.39 % (0.66-2.85); WHITE BLOOD COUNT 8.8 10^3/uL (4.0-10.5)
[2017-12-07 05:33] LABS: HEMOGLOBIN 7.5 g/dL (12.0-15.5)
[2017-12-07 05:34] LABS: ANION GAP 9 (5-19); BLOOD UREA NITROGEN 19 mg/dL (7-20); CALCIUM 8.2 mg/dL (8.4-10.2); CARBON DIOXIDE 19 mmol/L (22-30); CHLORIDE 113 mmol/L (98-107); GLUCOSE 99 mg/dL (75-110); POTASSIUM 3.7 mmol/L (3.6-5.0); SODIUM 141.1 mmol/L (137-145)
[2017-12-07] MEDS: HEPARIN SOD (PORCINE) 5,000 UNIT/ML 1 ML SYRINGE SUBCUT SCH ×3 (05:36→21:24)
[2017-12-07] MEDS: IPRATROPIUM BROMIDE 0.06% NASAL SPRAY 15 ML NASL SCH ×2 (05:37→14:07)
[2017-12-07] MEDS: PANTOPRAZOLE SODIUM 40 MG VIAL IV SCH ×2 (05:38→17:08)
[2017-12-07 05:58] LABS: ABSOLUTE LYMPHOCYTES# (MANUAL) 0.4 10^3/uL (0.5-4.7); ABSOLUTE MONOCYTES # (MANUAL) 0.9 10^3/uL (0.1-1.4); ABSOLUTE NEUTROPHILS# (MANUAL) 7.5 10^3/uL (1.7-8.2); BAND NEUTROPHILS % (MANUAL) 2 % (3-5); BASOPHILS % (MANUAL) 0 % (0-2); EOSINOPHILS % (MANUAL) 0 % (0-6); LYMPHOCYTES % (MANUAL) 5 % (13-45); MONOCYTES % (MANUAL) 10 % (3-13); SEGMENTED NEUTROPHILS % (MAN) 83 % (42-78); TOTAL CELLS COUNTED 100
[2017-12-07 05:59] LABS: HYPOCHROMASIA 2+; PLATELET COMMENT ADEQUATE
[2017-12-07] MEDS: NORMAL SALINE 1000 ML 1,000 ML IV PRN (07:57)
[2017-12-07] MEDS: ROFLUMILAST 500 MCG TABLET PO SCH (10:24)
[2017-12-07] MEDS: CITALOPRAM HYDROBROMIDE 20 MG TABLET PO SCH (10:24)
[2017-12-07] MEDS: MONTELUKAST SODIUM 10 MG TABLET PO SCH (10:24)
--- NOTE | 2017-12-07 11:28 | RADIOLOGY REPORT (SQ) ---
EXAM DESCRIPTION: CHEST SINGLE VIEW COMPLETED DATE/TIME: 12/07/2017 10:41 am REASON FOR STUDY: pna, rhonchi COMPARISON: 12/04/2017. EXAM PARAMETERS: NUMBER OF VIEWS: One view. TECHNIQUE: Single frontal radiographic view of the chest acquired. RADIATION DOSE: NA LIMITATIONS: None. FINDINGS: LUNGS AND PLEURA: Persistent airspace consolidation in right upper lobe and right middle l obe. Severe COPD with hyperlucency of the upper lung garcia consistent with bullous emphysema. 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 MEDIASTINUM AND HILAR STRUCTURES: No masses. Contour normal. HEART AND VASCULAR STRUCTURES: The heart is normal with normal pulmonary vasculature. BONES: No acute findings. HARDWARE: None in the chest. OTHER: No other significant finding. IMPRESSION: Bullous emphysema. Airspace consolidation right upper and right middle lobe consistent with pneumonia . TECHNICAL DOCUMENTATION: JOB ID: [id number] [id number] 2010 [employer]- All Rights Reserved Reading location - IP/workstation name: [email or web address]
--- NOTE | 2017-12-07 14:43 | PDOC PROGRESS REPORT ---
Subjective Progress Note for:: 12/07/17 - seen on rounds this morning Subjective:: states she's not happy to be in the hospital. states she doesn't like being sick. still having some SOB. also having diarrhea Reason For Visit: RIGHT LUNG PNEUMONIA,LEUKOCYTOSIS,ACUTE KIDNEY Physical Exam Vital Signs: Temp Pulse Resp BP Pulse Ox 98.0 F 113 H 20 129/73 H 98 12/07/17 11:53 12/07/17 13:49 12/07/17 13:49 12/07/17 11:53 12/07/17 13:49 Intake & Output 12/06/17 12/07/17 12/08/17 06:59 06:59 06:59 Intake Total 3581 3700 458 Balance 3581 3700 458 Weight 135 lb 5.821 oz 141 lb 1.533 oz General appearance: PRESENT: no acute distress, well-developed, well-nourished Head exam: PRESENT: atraumatic, normocephalic Eye exam: PRESENT: EOMI, PERRLA. ABSENT: scleral icterus Mouth exam: PRESENT: moist, neck supple Neck exam: ABSENT: tracheal deviation Respiratory exam: PRESENT: decreased breath sounds - decreased bilaterally at the bases with rhonchi and wheezing, rhonchi, symmetrical Cardiovascular exam: PRESENT: +S1, +S2 Pulses: PRESENT: +2 pedal pulses bilateral Extremities exam: ABSENT: +2 edema Neurological exam: PRESENT: alert, awake, oriented to person, oriented to place , oriented to time, oriented to situation, CN II-XII grossly intact Skin exam: PRESENT: dry, warm Results Laboratory Results: 12/07/17 05:01 12/07/17 05:01 12/07/17 12/07/17 12/07/17 05:01 05:01 05:01 WBC 8.8 RBC 2.16 L Hgb 7.5 L Hct 21.6 L MCV 100 H MCH 34.7 H MCHC 34.7 RDW 13.1 Plt Count 261 Seg Neutrophils % Not Reportable Lymphocytes % Not Reportable Monocytes % Not Reportable Eosinophils % Not Reportable Basophils % Not Reportable Absolute Neutrophils Not Reportable Absolute Lymphocytes Not Reportable Absolute Monocytes Not Reportable Absolute Eosinophils Not Reportable Absolute Basophils Not Reportable Retic Count (auto) 1.39 Absolute Retic 0.030 Sodium 141.1 Potassium 3.7 Chloride 113 H Carbon Dioxide 19 L Anion Gap 9 BUN 19 Creatinine 1.05 Est GFR ( Amer) > 60 Est GFR (Non-Af Amer) 53 L Glucose 99 Calcium 8.2 L Iron 13.0 L TIBC 176 L % Saturation 7 Ferritin 1210.00 H Vitamin B12 869.0 Folate 16.90 Blood Type O POSITIVE Antibody Screen NEGATIVE 12/04/17 21:23 Stool - Stool - Final 12/04/17 21:23 Stool - Stool Stool Culture - Final C.albicans/C.dubliniensis Impressions: Abdomen/Pelvis CT 12/04/17 15:40 IMPRESSION: 1. Distended gallbladder with some small gallstones. 2. 5 cm left ovarian cyst. Recommend follow-up pelvic ultrasound. Chest CT 12/04/17 18:00 IMPRESSION: Pulmonary emphysema with right upper lobe and middle lobe pneumonia. Chest X-Ray 12/07/17 00:00 IMPRESSION: Bullous emphysema. Airspace consolidation right upper and right middle lobe consistent with pneumonia . Assessment & Plan - Diagnosis (1) MARGOT (acute kidney injury) Is this a current diagnosis for this admission?: Yes Plan: resolved (2) Anemia Qualifiers: Anemia type: unspecified type Qualified Code(s): D64.9 - Anemia, unspecified Is this a current diagnosis for this admission?: Yes Plan: Hb has been dropping since admission. dilutional vs GI bleed vs other causes. high MCV but B12 and folate normal. no history of change in color of stool or bloody emesis. will monitor now. recheck CBC later today- transfuse for Hb < 7 (3) Pneumonia involving right lung Qualifiers: Lung location: upper lobe of lung Is this a current diagnosis for this admission?: Yes Plan: currently on levaquin- WBC normal now. remains afebrile- will d/c after 7 days of Abx (4) Acute and chronic respiratory failure with hypoxia Is this a current diagnosis for this admission?: Yes Plan: on 3L of O2- normally she takes 2L O2 at home. COPD exac? CXR today shows bullous emphysema- likely due to severe COPD. c/w nebs and inhalers for now (5) Chronic obstructive pulmonary disease Qualifiers: COPD type: emphysema Emphysema type: unspecified Qualified Code(s): J43.9 - Emphysema, unspecified Is this a current diagnosis for this admission?: Yes Plan: see plan above. wean O2 to baseline 2L. SaO2 >89% (6) Diarrhea Is this a current diagnosis for this admission?: Yes Plan: still having diarrhea- unclear- stool cultures show franco albicans- ?levaquin related. will check c. diff if not done already. give one time fluconazole and started on probiotics. will will start on some gentle hydration.
[2017-12-07] MEDS ORDERED: FLUCONAZOLE 100 MG TABLET PO ONE (15:15)
[2017-12-07 16:18] LABS: HEMATOCRIT 22.8 % (36.0-47.0); MEAN CORPUSCULAR HEMOGLOBIN 34.4 pg (27.0-33.4); MEAN CORPUSCULAR VOLUME 101 fl (80-97); PLATELET COUNT 277 10^3/uL (150-450); RED BLOOD COUNT 2.26 10^6/uL (3.72-5.28); RED CELL DISTRIBUTION WIDTH 13.4 % (11.5-14.0); WHITE BLOOD COUNT 9.8 10^3/uL (4.0-10.5)
[2017-12-07 16:20] LABS: HEMOGLOBIN 7.8 g/dL (12.0-15.5)
[2017-12-07] MEDS: LACTOBACILLUS ACIDOPHILUS 250 MG TAB PO SCH (17:08)
[2017-12-07] MEDS: OXYCODONE-ACETAMINOPHEN 5-325 MG TABLET PO PRN (19:27)
[2017-12-07] MEDS: LEVALBUTEROL HCL NEB 1.25 MG/3 ML AMPUL NEB SCH (20:30)
[2017-12-07] MEDS: CLONAZEPAM 1 MG TABLET PO SCH (21:23)
[2017-12-08] MEDS: IPRATROPIUM BROMIDE 0.06% NASAL SPRAY 15 ML NASL SCH ×4 (01:36→21:23)
[2017-12-08] MEDS: LEVALBUTEROL HCL NEB 1.25 MG/3 ML AMPUL NEB SCH ×4 (02:28→19:30)
[2017-12-08] MEDS: PANTOPRAZOLE SODIUM 40 MG VIAL IV SCH (05:34)
[2017-12-08] MEDS: HEPARIN SOD (PORCINE) 5,000 UNIT/ML 1 ML SYRINGE SUBCUT SCH ×3 (05:34→21:23)
[2017-12-08 06:03] LABS: HEMATOCRIT 22.6 % (36.0-47.0); MEAN CORPUSCULAR HEMOGLOBIN 35.3 pg (27.0-33.4); MEAN CORPUSCULAR HGB CONC 35.6 g/dL (32.0-36.0); MEAN CORPUSCULAR VOLUME 99 fl (80-97); PLATELET COUNT 298 10^3/uL (150-450); RED BLOOD COUNT 2.28 10^6/uL (3.72-5.28); RED CELL DISTRIBUTION WIDTH 13.2 % (11.5-14.0); WHITE BLOOD COUNT 7.7 10^3/uL (4.0-10.5)
[2017-12-08] MEDS: MONTELUKAST SODIUM 10 MG TABLET PO SCH (10:10)
[2017-12-08] MEDS: ROFLUMILAST 500 MCG TABLET PO SCH (10:10)
[2017-12-08] MEDS: LACTOBACILLUS ACIDOPHILUS 250 MG TAB PO SCH ×2 (10:10→17:12)
[2017-12-08] MEDS: CITALOPRAM HYDROBROMIDE 20 MG TABLET PO SCH (10:10)
[2017-12-08] MEDS ORDERED: FLUTICASONE/SALMETEROL DISKUS 250-50 MCG/DOSE IH ONE ×2 (17:30→17:54)
[2017-12-08] MEDS ORDERED: PREDNISONE 20 MG TABLET PO ONE (17:30)
--- NOTE | 2017-12-08 17:36 | PDOC PROGRESS REPORT ---
Subjective Progress Note for:: 12/08/17 - Seen on rounds this afternoon Subjective:: Patient states that she still feels short of breath but otherwise her diarrhea is improved today. Reason For Visit: RIGHT LUNG PNEUMONIA,LEUKOCYTOSIS,ACUTE KIDNEY Physical Exam Vital Signs: Temp Pulse Resp BP Pulse Ox 98.6 F 119 H 18 138/67 H 97 12/08/17 16:01 12/08/17 16:01 12/08/17 16:01 12/08/17 16:01 12/08/17 16:22 Intake & Output 12/07/17 12/08/17 12/09/17 06:59 06:59 06:59 Intake Total 3700 1213 250 Output Total 100 Balance 3700 1213 150 Weight 141 lb 1.533 oz 138 lb 3.677 oz General appearance: PRESENT: no acute distress, well-developed, well-nourished, other - Laying comfortably on the bed in no acute distress Head exam: PRESENT: atraumatic, normocephalic Eye exam: PRESENT: EOMI, PERRLA. ABSENT: scleral icterus Ear exam: PRESENT: normal external ear exam Mouth exam: PRESENT: neck supple, tongue midline Neck exam: ABSENT: tracheal deviation Respiratory exam: PRESENT: decreased breath sounds - Bilaterally decreased breath sounds-mostly at the bases-expiratory wheezing, symmetrical, wheezes - in bilateral lung garcia Cardiovascular exam: PRESENT: +S1, +S2, tachycardia Pulses: PRESENT: +2 pedal pulses bilateral GI/Abdominal exam: PRESENT: normal bowel sounds, soft. ABSENT: tenderness Extremities exam: ABSENT: joint swelling, pedal edema Neurological exam: PRESENT: alert, oriented to person, oriented to place, oriented to time, oriented to situation, CN II-XII grossly intact Skin exam: PRESENT: dry, warm Results Laboratory Results: 12/08/17 05:25 12/07/17 05:01 12/08/17 05:25 WBC 7.7 RBC 2.28 L Hgb 8.0 L Hct 22.6 L MCV 99 H MCH 35.3 H MCHC 35.6 RDW 13.2 Plt Count 298 Impressions: Abdomen/Pelvis CT 12/04/17 15:40 IMPRESSION: 1. Distended gallbladder with some small gallstones. 2. 5 cm left ovarian cyst. Recommend follow-up pelvic ultrasound. Chest CT 12/04/17 18:00 IMPRESSION: Pulmonary emphysema with right upper lobe and middle lobe pneumonia. Chest X-Ray 12/07/17 00:00 IMPRESSION: Bullous emphysema. Airspace consolidation right upper and right middle lobe consistent with pneumonia . Assessment & Plan - Diagnosis (1) Pneumonia involving right lung Qualifiers: Lung location: upper lobe of lung Is this a current diagnosis for this admission?: Yes Plan: Stable-continue with levaquin- WBC normal now. remains afebrile- will d/c after 7 days of Abx (2) Acute and chronic respiratory failure with hypoxia Is this a current diagnosis for this admission?: Yes Plan: on 3L of O2- normally she takes 2L O2 at home. CXR shows bullous emphysema- likely due to severe COPD. I have added back her home dose of Advair which she was not receiving prior. (3) MARGOT (acute kidney injury) Is this a current diagnosis for this admission?: Yes Plan: resolved (4) Anemia Qualifiers: Anemia type: unspecified type Qualified Code(s): D64.9 - Anemia, unspecified Is this a current diagnosis for this admission?: Yes Plan: Stable at this time-hemoglobin today greater than 8. Hb had been dropping since admission. dilutional vs GI bleed vs other causes. high MCV but B12 and folate normal. no history of change in color of stool or bloody emesis. will monitor now. transfuse for Hb < 7 (5) Chronic obstructive pulmonary disease Qualifiers: COPD type: emphysema Emphysema type: unspecified Qualified Code(s): J43.9 - Emphysema, unspecified Is this a current diagnosis for this admission?: Yes Plan: see plan above. wean O2 to baseline 2L. SaO2 >89%-I restarted her home dose of Advair which she was not receiving prior. Today I also added prednisone 60 mg burst dose for 5 days (6) Diarrhea Is this a current diagnosis for this admission?: Yes Plan: States she did not have diarrhea today so far. Unclear etiology but her stool culture did show Eryn albicans-started on lactobacillus and 1 dose of Diflucan yesterday.
[2017-12-08] MEDS: LEVOFLOXACIN 750 MG/D5W RTU 750 MG/150 ML RTUPB IV SCH (21:23)
[2017-12-08] MEDS: CLONAZEPAM 1 MG TABLET PO SCH (21:23)
[2017-12-09] MEDS: LEVALBUTEROL HCL NEB 1.25 MG/3 ML AMPUL NEB SCH ×4 (01:16→20:15)
[2017-12-09] MEDS: HEPARIN SOD (PORCINE) 5,000 UNIT/ML 1 ML SYRINGE SUBCUT SCH ×3 (05:17→22:05)
[2017-12-09] MEDS: IPRATROPIUM BROMIDE 0.06% NASAL SPRAY 15 ML NASL SCH ×3 (05:17→22:04)
[2017-12-09] MEDS: FLUTICASONE/SALMETEROL DISKUS 250-50 MCG/DOSE IH SCH ×2 (12:21→22:04)
[2017-12-09] MEDS: ROFLUMILAST 500 MCG TABLET PO SCH (12:23)
[2017-12-09] MEDS: MONTELUKAST SODIUM 10 MG TABLET PO SCH (12:26)
[2017-12-09] MEDS: CITALOPRAM HYDROBROMIDE 20 MG TABLET PO SCH (12:26)
[2017-12-09] MEDS: PREDNISONE 20 MG TABLET PO SCH (12:28)
[2017-12-09] MEDS: OXYCODONE-ACETAMINOPHEN 5-325 MG TABLET PO PRN (12:28)
[2017-12-09] MEDS: LACTOBACILLUS ACIDOPHILUS 250 MG TAB PO SCH ×2 (12:28→19:04)
--- NOTE | 2017-12-09 17:25 | PDOC PROGRESS REPORT ---
Subjective Progress Note for:: 12/09/17 Subjective:: The patient is a 62-year-old female with past medical history significant for oxygen dependent COPD. She uses 2 L at baseline. Unfortunately she continues to smoke. She also has a history of alcohol use, hepatitis C and depression. The patient presented to the emergency room with a 3 day history of nausea vomiting diarrhea and cough. Initial workup in the emergency room revealed a leukocytosis of 20,000 and creatinine of 2.3. She was admitted to the hospital. She was found to have a septic picture and evidence of underlying pneumonia. She has been treated with IV Levaquin and is received IV fluids. Her acute kidney injury resolved and her sepsis symptoms have resolved as well. Unfortunately she remains above her baseline oxygen requirements. Today she is still requiring 3 L of oxygen. She states that she is feeling much better than when she came into the hospital. She still is somewhat short of breath but greatly improved. She no longer has productive cough. She has had no chest pain or heart palpitations. No nausea vomiting or diarrhea. No abdominal pain. No urinary complaints. Reason For Visit: RIGHT LUNG PNEUMONIA,LEUKOCYTOSIS,ACUTE KIDNEY Physical Exam Vital Signs: Temp Pulse Resp BP Pulse Ox 98.4 F 116 H 24 H 137/72 H 90 L 12/09/17 15:20 12/09/17 15:20 12/09/17 15:20 12/09/17 15:20 12/09/17 15:20 Intake & Output 12/08/17 12/09/17 12/10/17 06:59 06:59 06:59 Intake Total 1213 915 587 Output Total 700 300 Balance 1213 215 287 Weight 62.7 kg 60.4 kg General appearance: PRESENT: no acute distress, well-developed, well-nourished Head exam: PRESENT: atraumatic, normocephalic Mouth exam: PRESENT: moist, tongue midline Respiratory exam: PRESENT: decreased breath sounds. ABSENT: rales, rhonchi, wheezes Cardiovascular exam: PRESENT: RRR. ABSENT: diastolic murmur, rubs, systolic murmur Pulses: PRESENT: normal dorsalis pedis pul GI/Abdominal exam: PRESENT: normal bowel sounds, soft. ABSENT: distended, guarding, mass, organolmegaly, rebound, tenderness Rectal exam: PRESENT: deferred Extremities exam: PRESENT: calf tenderness Neurological exam: PRESENT: alert, awake, oriented to person, oriented to place , oriented to time, oriented to situation, CN II-XII grossly intact. ABSENT: motor sensory deficit Psychiatric exam: PRESENT: appropriate affect, normal mood. ABSENT: homicidal ideation, suicidal ideation Skin exam: PRESENT: dry, intact, warm. ABSENT: cyanosis, rash Results Laboratory Results: 12/08/17 05:25 12/07/17 05:01 Impressions: Abdomen/Pelvis CT 12/04/17 15:40 IMPRESSION: 1. Distended gallbladder with some small gallstones. 2. 5 cm left ovarian cyst. Recommend follow-up pelvic ultrasound. Chest CT 12/04/17 18:00 IMPRESSION: Pulmonary emphysema with right upper lobe and middle lobe pneumonia. Chest X-Ray 12/07/17 00:00 IMPRESSION: Bullous emphysema. Airspace consolidation right upper and right middle lobe consistent with pneumonia . Assessment & Plan - Diagnosis (1) Severe sepsis Is this a current diagnosis for this admission?: Yes Plan: The patient had markedly leukocytosis, severe hypotension, tachycardia and evidence of infection at the time of admission. Her sepsis symptoms have resolved. (2) Acute and chronic respiratory failure Is this a current diagnosis for this admission?: Yes Plan: She is still above her baseline oxygen requirements. She was started on p.o. prednisone by the physician yesterday. She does continue to have some mild wheezing and is significantly diminished. Respiratory failure is also related to her underlying pneumonia. It would be nice to get her back to her baseline oxygen requirements prior to discharge. (3) Pneumonia Is this a current diagnosis for this admission?: Yes Plan: Concerns for gram positives and atypicals. Continue IV Levaquin. (4) Acute kidney injury Is this a current diagnosis for this admission?: Yes Plan: She has not had labs in several days. Her kidney function had normalized. She will have a chemistry panel drawn in the morning. (5) COPD exacerbation Is this a current diagnosis for this admission?: Yes Plan: Continue p.o. prednisone (6) Diarrhea Is this a current diagnosis for this admission?: Yes Plan: Possibly due to a viral gastroenteritis or her underlying pneumonia. Resolved (7) Hepatitis C Is this a current diagnosis for this admission?: Yes Plan: No issues during this hospitalization (8) Depression Is this a current diagnosis for this admission?: Yes Plan: Stable (9) Tobacco dependence Is this a current diagnosis for this admission?: Yes Plan: Certainly it would be in her best interest to quit smoking. She has been counseled regarding this (10) Hypokalemia Is this a current diagnosis for this admission?: Yes Plan: Repleted and resolved (11) Anemia Is this a current diagnosis for this admission?: Yes Plan: She had a precipitous drop in hemoglobin likely due to hemodilution - Time Time Spent with patient: 25-34 minutes - Inpatient Certification Medical Necessity: Need For IV Fluids, Need for IV Antibiotics, Other - Inpatient hospitalization remains necessary. Overall the patient is improving. She still above her baseline oxygen requirements. Timing of disposition will be determined by her clinical course. Hopefully she can be discharged in the next 24-48 hours
[2017-12-09] MEDS: CLONAZEPAM 1 MG TABLET PO SCH (22:05)
[2017-12-09] MEDS ORDERED: ACETAMINOPHEN 325 MG TABLET ONE (22:15)
[2017-12-09] MEDS: ACETAMINOPHEN 325 MG TABLET PO PRN (22:21)
[2017-12-10] MEDS: LEVALBUTEROL HCL NEB 1.25 MG/3 ML AMPUL NEB SCH ×4 (02:41→20:30)
[2017-12-10] MEDS: HEPARIN SOD (PORCINE) 5,000 UNIT/ML 1 ML SYRINGE SUBCUT SCH (05:52)
[2017-12-10] MEDS: IPRATROPIUM BROMIDE 0.06% NASAL SPRAY 15 ML NASL SCH ×3 (05:52→22:08)
[2017-12-10 07:10] LABS: ABSOLUTE BASOPHILS # (AUTO) 0.1 10^3/uL (0.0-0.2); ABSOLUTE LYMPHOCYTES (AUTO) 0.4 10^3/uL (0.5-4.7); ABSOLUTE MONOCYTES (AUTO) 0.4 10^3/uL (0.1-1.4); ABSOLUTE NEUT (AUTO) 3.1 10^3/uL (1.7-8.2); ANION GAP 9 (5-19); BASOPHILS % (AUTO) 1.3 % (0-2); BLOOD UREA NITROGEN 22 mg/dL (7-20); CALCIUM 8.5 mg/dL (8.4-10.2); CARBON DIOXIDE 23 mmol/L (22-30); CHLORIDE 111 mmol/L (98-107); GLUCOSE 115 mg/dL (75-110); HEMATOCRIT 19.7 % (36.0-47.0); LYMPHOCYTES % (AUTO) 10.6 % (13-45); MEAN CORPUSCULAR HEMOGLOBIN 34.6 pg (27.0-33.4); MEAN CORPUSCULAR HGB CONC 35.7 g/dL (32.0-36.0); MEAN CORPUSCULAR VOLUME 97 fl (80-97); MONOCYTES % (AUTO) 9.6 % (3-13); PLATELET COUNT 337 10^3/uL (150-450); RED BLOOD COUNT 2.04 10^6/uL (3.72-5.28); RED CELL DISTRIBUTION WIDTH 13.5 % (11.5-14.0); SEGMENTED NEUTROPHILS % (AUTO) 78.5 % (42-78); SODIUM 143.2 mmol/L (137-145); TOTAL CELLS COUNTED % (AUTO) 100 %; WHITE BLOOD COUNT 3.9 10^3/uL (4.0-10.5)
[2017-12-10 08:46] LABS: ABSOLUTE LYMPHOCYTES (AUTO) 0.5 10^3/uL (0.5-4.7); ABSOLUTE MONOCYTES (AUTO) 0.5 10^3/uL (0.1-1.4); ABSOLUTE NEUT (AUTO) 3.5 10^3/uL (1.7-8.2); BASOPHILS % (AUTO) 0.6 % (0-2); HEMATOCRIT 19.8 % (36.0-47.0); LYMPHOCYTES % (AUTO) 11.3 % (13-45); MEAN CORPUSCULAR HEMOGLOBIN 33.8 pg (27.0-33.4); MEAN CORPUSCULAR HGB CONC 34.7 g/dL (32.0-36.0); MEAN CORPUSCULAR VOLUME 97 fl (80-97); MONOCYTES % (AUTO) 10.7 % (3-13); PLATELET COUNT 333 10^3/uL (150-450); RED BLOOD COUNT 2.04 10^6/uL (3.72-5.28); RED CELL DISTRIBUTION WIDTH 13.1 % (11.5-14.0); SEGMENTED NEUTROPHILS % (AUTO) 77.4 % (42-78); TOTAL CELLS COUNTED % (AUTO) 100 %; WHITE BLOOD COUNT 4.5 10^3/uL (4.0-10.5)
[2017-12-10 08:57] LABS: ANION GAP 9 (5-19); BLOOD UREA NITROGEN 22 mg/dL (7-20); CALCIUM 8.6 mg/dL (8.4-10.2); CARBON DIOXIDE 22 mmol/L (22-30); CHLORIDE 111 mmol/L (98-107); GLUCOSE 105 mg/dL (75-110); SODIUM 142.1 mmol/L (137-145)
[2017-12-10 09:02] LABS: HEMOGLOBIN 6.9 g/dL (12.0-15.5)
[2017-12-10] MEDS: FLUTICASONE/SALMETEROL DISKUS 250-50 MCG/DOSE IH SCH ×2 (09:16→22:08)
[2017-12-10] MEDS: ROFLUMILAST 500 MCG TABLET PO SCH (09:16)
[2017-12-10] MEDS: PREDNISONE 20 MG TABLET PO SCH (09:16)
[2017-12-10] MEDS: LACTOBACILLUS ACIDOPHILUS 250 MG TAB PO SCH ×2 (09:17→17:13)
[2017-12-10] MEDS: CITALOPRAM HYDROBROMIDE 20 MG TABLET PO SCH (09:17)
[2017-12-10] MEDS: MONTELUKAST SODIUM 10 MG TABLET PO SCH (09:18)
[2017-12-10] MEDS ORDERED: NORMAL SALINE 250 ML IV PRN ×2 (10:22)
[2017-12-10] MEDS ORDERED: FUROSEMIDE INJ/PF 20 MG/2 ML SDV IV PRN (10:22)
[2017-12-10] MEDS: POTASSIUM CHLORIDE 10 MEQ CAPSULE.ER PO SCH ×2 (14:08→17:13)
--- NOTE | 2017-12-10 15:16 | PDOC PROGRESS REPORT ---
Subjective Progress Note for:: 12/28/17 Subjective:: [age]-year-old female with COPD, nicotine abuse, alcohol abuse and hepatitis C and depression admitted with nausea vomiting and diarrhea. He was initially septic with underlying pneumonia. Patient has been treated with Levaquin and she appears to be recovering although still hypoxemic requiring 3 L of oxygen. She does tell me though that she uses oxygen at home about 18 hours a day and feels that she is close to her baseline. She was found to be anemic though today with hemoglobin of 6.9 although precise etiology of this is unknown. She is hemodynamically stable with no hypotension or tachycardia and there is been no evidence of acute blood loss. Reason For Visit: RIGHT LUNG PNEUMONIA,LEUKOCYTOSIS,ACUTE KIDNEY Physical Exam Vital Signs: Temp Pulse Resp BP Pulse Ox 98.5 F 105 H 20 128/74 H 100 12/10/17 15:02 12/10/17 15:02 12/10/17 15:02 12/10/17 15:02 12/10/17 15:02 Intake & Output 12/09/17 12/10/17 12/11/17 06:59 06:59 06:59 Intake Total 915 912 300 Output Total 700 700 400 Balance 215 212 -100 Weight 60.4 kg 61.8 kg General appearance: PRESENT: no acute distress Head exam: PRESENT: atraumatic, normocephalic Eye exam: PRESENT: conjunctiva pink, EOMI, PERRLA. ABSENT: scleral icterus Ear exam: PRESENT: normal external ear exam Mouth exam: PRESENT: dry mucosa, tongue midline Neck exam: ABSENT: carotid bruit, JVD, lymphadenopathy, thyromegaly Respiratory exam: PRESENT: clear to auscultation jessica. ABSENT: rales, rhonchi, wheezes Cardiovascular exam: PRESENT: RRR, +S1, +S2. ABSENT: diastolic murmur, rubs, systolic murmur Pulses: PRESENT: normal dorsalis pedis pul GI/Abdominal exam: PRESENT: normal bowel sounds, soft. ABSENT: distended, guarding, mass, organolmegaly, rebound, tenderness Rectal exam: PRESENT: deferred Extremities exam: PRESENT: full ROM. ABSENT: calf tenderness, clubbing, pedal edema Neurological exam: PRESENT: alert, awake, oriented to person, oriented to place , oriented to time, oriented to situation, CN II-XII grossly intact. ABSENT: motor sensory deficit Psychiatric exam: PRESENT: appropriate affect, normal mood. ABSENT: homicidal ideation, suicidal ideation Skin exam: PRESENT: dry, intact, warm. ABSENT: cyanosis, rash Results Laboratory Results: 12/10/17 08:15 18 08:15 12/10/17 12/10/17 12/10/17 05:51 05:51 08:15 WBC 3.9 L 4.5 RBC 2.04 L 2.04 L Hgb 7.0 L 6.9 L Hct 19.7 L 19.8 L MCV 97 97 MCH 34.6 H 33.8 H MCHC 35.7 34.7 RDW 13.5 13.1 Plt Count 337 333 Seg Neutrophils % 78.5 H 77.4 Lymphocytes % 10.6 L 11.3 L Monocytes % 9.6 10.7 Eosinophils % 0.0 0.0 Basophils % 1.3 0.6 Absolute Neutrophils 3.1 3.5 Absolute Lymphocytes 0.4 L 0.5 Absolute Monocytes 0.4 0.5 Absolute Eosinophils 0.0 0.0 Absolute Basophils 0.1 0.0 Sodium 143.2 Potassium 3.0 L* Chloride 111 H Carbon Dioxide 23 Anion Gap 9 BUN 22 H Creatinine 0.86 Est GFR ( Amer) > 60 Est GFR (Non-Af Amer) > 60 Glucose 115 H Calcium 8.5 Magnesium 1.4 L Blood Type Antibody Screen 12/10/17 12/10/17 08:15 11:31 WBC RBC Hgb Hct MCV MCH MCHC RDW Plt Count Seg Neutrophils % Lymphocytes % Monocytes % Eosinophils % Basophils % Absolute Neutrophils Absolute Lymphocytes Absolute Monocytes Absolute Eosinophils Absolute Basophils Sodium 142.1 Potassium 3.0 L* Chloride 111 H Carbon Dioxide 22 Anion Gap 9 BUN 22 H Creatinine 0.83 Est GFR ( Amer) > 60 Est GFR (Non-Af Amer) > 60 Glucose 105 Calcium 8.6 Magnesium Blood Type O POSITIVE Antibody Screen NEGATIVE Impressions: Abdomen/Pelvis CT 12/04/17 15:40 IMPRESSION: 1. Distended gallbladder with some small gallstones. 2. 5 cm left ovarian cyst. Recommend follow-up pelvic ultrasound. Chest CT 12/04/17 18:00 IMPRESSION: Pulmonary emphysema with right upper lobe and middle lobe pneumonia. Chest X-Ray 12/07/17 00:00 IMPRESSION: Bullous emphysema. Airspace consolidation right upper and right middle lobe consistent with pneumonia . Assessment & Plan - Time Time Spent with patient: 15-24 minutes Medications reviewed and adjusted accordingly: Yes Anticipated discharge: Home Within: within 72 hours - Inpatient Certification Based on my medical assessment, after consideration of the patient's comorbidities, presenting symptoms, or acuity I expect that the services needed warrant INPATIENT care.: Yes Medical Necessity: Significant Comorbidiites Make Outpatient Treatment Too Risky , Risk of Complication if Not Cared For in Hospital - Plan Summary Plan Summary: Severe sepsis with leukocytosis, hypotension, tachycardia and pneumonia. Sepsis has resolved 2. Anemia likely chronic, iron deficient with exacerbation with acute illness. Patient will be transfused today. She is also iron deficient so we will give her and hopefully tomorrow 3. Acute on chronic respiratory failure with that patient still hypoxemic but improving. I will taper her prednisone as per response. 4. Kidney injury likely secondary to acute tubular necrosis. Kidney function has recovered nicely. 5. Hypomagnesemia and hypokalemia will replete 6. Hyperthyroidism with a TSH of 0.17. Ordered free T4 as well as T4. Patient tells me that she has a history of what sounds like a sub total thyroidectomy but details a little fuzzy and she says she has not been on any medications for thyroid illness. Will follow up on her thyroid function and will have have a follow-up with PCP if indicated. 7. History of hepatitis C chronic 8. COPD exacerbation per steroids as per response 9. Tobacco abuse smoking cessation suggested excellent 10. Depression chronic
[2017-12-10] MEDS: MAGNESIUM SULFATE/D5W 1 GM/100 ML RTUPB IV SCH ×3 (15:23→17:34)
[2017-12-10] MEDS: ACETAMINOPHEN 325 MG TABLET PO PRN (17:12)
[2017-12-10] MEDS ORDERED: MAGNESIUM SULFATE/D5W 1 GM/100 ML RTUPB IV ONE (17:30)
[2017-12-10] MEDS ORDERED: LEVOFLOXACIN 750 MG TABLET PO SCH (22:00)
[2017-12-10] MEDS: CLONAZEPAM 1 MG TABLET PO SCH (22:08)
[2017-12-10] MEDS: OXYCODONE-ACETAMINOPHEN 5-325 MG TABLET PO PRN (22:15)
[2017-12-11] MEDS: LEVALBUTEROL HCL NEB 1.25 MG/3 ML AMPUL NEB SCH ×3 (02:27→13:50)
[2017-12-11] MEDS: IPRATROPIUM BROMIDE 0.06% NASAL SPRAY 15 ML NASL SCH ×2 (05:23→15:07)
[2017-12-11 06:36] LABS: ABSOLUTE LYMPHOCYTES (AUTO) 0.6 10^3/uL (0.5-4.7); ABSOLUTE MONOCYTES (AUTO) 0.6 10^3/uL (0.1-1.4); ABSOLUTE NEUT (AUTO) 4.5 10^3/uL (1.7-8.2); BASOPHILS % (AUTO) 0.1 % (0-2); EOSINOPHILS % (AUTO) 0.1 % (0-6); HEMATOCRIT 27.6 % (36.0-47.0); LYMPHOCYTES % (AUTO) 11.1 % (13-45); MEAN CORPUSCULAR HEMOGLOBIN 33.5 pg (27.0-33.4); MEAN CORPUSCULAR HGB CONC 35.3 g/dL (32.0-36.0); MEAN CORPUSCULAR VOLUME 95 fl (80-97); MONOCYTES % (AUTO) 9.9 % (3-13); PLATELET COUNT 318 10^3/uL (150-450); RED BLOOD COUNT 2.91 10^6/uL (3.72-5.28); RED CELL DISTRIBUTION WIDTH 14.4 % (11.5-14.0); SEGMENTED NEUTROPHILS % (AUTO) 78.8 % (42-78); TOTAL CELLS COUNTED % (AUTO) 100 %; WHITE BLOOD COUNT 5.7 10^3/uL (4.0-10.5)
[2017-12-11 06:38] LABS: HEMOGLOBIN 9.8 g/dL (12.0-15.5)
[2017-12-11 07:07] LABS: ANION GAP 7 (5-19); BLOOD UREA NITROGEN 22 mg/dL (7-20); CALCIUM 8.3 mg/dL (8.4-10.2); CARBON DIOXIDE 25 mmol/L (22-30); CHLORIDE 110 mmol/L (98-107); GLUCOSE 98 mg/dL (75-110); POTASSIUM 3.4 mmol/L (3.6-5.0); SODIUM 141.6 mmol/L (137-145)
[2017-12-11 07:10] LABS: FREE T3 1.79 pg/mL (2.77-5.27); FREE T4 (FREE THYROXINE) 1.32 ng/dL (0.78-2.19)
[2017-12-11] MEDS ORDERED: POTASSIUM CHLORIDE 10 MEQ CAPSULE.ER PO ONE (08:30)
[2017-12-11] MEDS: CITALOPRAM HYDROBROMIDE 20 MG TABLET PO SCH (11:28)
[2017-12-11] MEDS: PREDNISONE 20 MG TABLET PO SCH (11:28)
[2017-12-11] MEDS: MONTELUKAST SODIUM 10 MG TABLET PO SCH (11:29)
[2017-12-11] MEDS: LACTOBACILLUS ACIDOPHILUS 250 MG TAB PO SCH (11:29)
[2017-12-11] MEDS: FLUTICASONE/SALMETEROL DISKUS 250-50 MCG/DOSE IH SCH (11:29)
[2017-12-11] MEDS: OXYCODONE-ACETAMINOPHEN 5-325 MG TABLET PO PRN ×2 (11:29→15:06)
[2017-12-11] MEDS: ROFLUMILAST 500 MCG TABLET PO SCH (11:29)
[2017-12-11] MEDS ORDERED: IRON SUCROSE COMPLEX INJ/PF 100 MG/5 ML SDV IV ONE (12:00)
--- NOTE | 2017-12-11 12:54 | PDOC DISCHARGE SUMMARY ---
General - Admit/Disc Date/PCP Admission Date/Primary Care Provider: 12/04/17 18:26 DARINEL MIRANDA MD Discharge Date: 12/11/17 - Discharge Diagnosis (1) Acute and chronic respiratory failure Is this a current diagnosis for this admission?: Yes (2) Anemia Is this a current diagnosis for this admission?: Yes (3) COPD exacerbation Is this a current diagnosis for this admission?: Yes (4) Hypokalemia Is this a current diagnosis for this admission?: Yes (5) Pneumonia involving right lung Is this a current diagnosis for this admission?: Yes (6) Severe sepsis Is this a current diagnosis for this admission?: Yes (7) Tobacco dependence Is this a current diagnosis for this admission?: Yes (8) Cigarette smoker two packs a day or less Is this a current diagnosis for this admission?: Yes - Additional Information Resuscitation Status: Full Code Discharge Diet: Regular Discharge Activity: Activity As Tolerated Prescriptions: Levofloxacin [Levaquin 750 mg Tablet] 750 mg PO QHS #3 tablet Ferrous Sulfate 325 mg PO BID #60 tablet Prednisone [Deltasone 20 mg Tablet] 40 mg PO DAILY #5 tablet Home Medications: Citalopram Hydrobromide [Celexa 10 mg Tablet] 10 mg PO DAILY 12/04/17 Clonazepam [Klonopin 1 mg Tablet] 1 mg PO DAILY 12/04/17 Fluticasone/Salmeterol [Advair HFA 230-21 mcg Inhaler] 2 puff IH Q12 12/04/17 Ipratropium [place] [Atrovent 0.06% Nasal [place]] 1 spray NASL TID 12/04/17 Ipratropium/Albuterol Sulfate [Iprat-Albut 0.5-3(2.5) mg/3 ml] 3 ml NEB Q6 12/04 Montelukast Sodium [Singulair 10 mg Tablet] 10 mg PO DAILY 12/04/17 Omeprazole 40 mg PO DAILY 12/04/17 Roflumilast [Daliresp 500 mcg Tablet] 500 mcg PO DAILY 12/04/17 Tiotropium [place] [Spiriva Respimat] 2 puff IH DAILY 12/04/17 Ferrous Sulfate 325 mg PO BID #60 tablet 12/11/17 Lactobacillus Acidophilus [Bacid 250 mg Tablet] 500 mg PO BID tab 12/11/17 Levofloxacin [Levaquin 750 mg Tablet] 750 mg PO QHS #3 tablet 12/11/17 Prednisone [Deltasone 20 mg Tablet] 40 mg PO DAILY #5 tablet 12/11/17 History of Present Illness History of Present Illness: YANCY HAYES is a 62 year old female whose past medical history of chronic respiratory failure O2 dependent, COPD, tobacco dependence, depression and hepatitis C presents with chief complaint of nausea, vomiting and diarrhea of 3 days duration. Patient has associated shortness of breath dry cough and subjective fever. She claims Ms. she had been treated with antibiotics the last 90 days. She describes the diarrhea watery and foul-smelling and too frequent to count. Her blood work shows leukocytosis of 20,000 and creatinine of 2.3. Hospital Course Hospital Course: Patient was admitted with difficulty breathing and shortness of breath and was found to have sepsis with a right lobe pneumonia per CT scan. She was hypoxemic and received supplemental oxygen. She was started on intravenous antibiotics and she will complete a 10 day course of antibiotics. She was also found to have COPD with acute exacerbation and was treated with bronchodilators as well as steroids. Acute kidney injury was thought to be due to acute tubular necrosis from acute infection and this has also since resolved. Patient was found to be iron deficient with anemia and so received 2 units of packed red blood cell transfusion as well as intravenous iron infusion. Follow- up evaluation and possible referral to GI for further management of iron deficiency anemia is suggested. Patient has otherwise remained hemodynamically stable and at this time it is felt that she can be discharged home for outpatient follow-up Physical Exam Vital Signs: Temp Pulse Resp BP Pulse Ox 97.5 F 73 20 117/66 100 12/11/17 11:14 12/11/17 11:14 12/11/17 11:14 12/11/17 11:14 12/11/17 11:14 Intake & Output 12/10/17 12/11/17 12/12/17 06:59 06:59 06:59 Intake Total 912 1742 218 Output Total 700 700 Balance 212 1042 218 Weight 61.8 kg 62.1 kg General appearance: PRESENT: no acute distress, well-developed, well-nourished Head exam: PRESENT: atraumatic, normocephalic Eye exam: PRESENT: conjunctiva pink, PERRLA. ABSENT: scleral icterus Mouth exam: PRESENT: moist, tongue midline Neck exam: ABSENT: carotid bruit, JVD, lymphadenopathy, thyromegaly Respiratory exam: PRESENT: clear to auscultation jessica, unlabored. ABSENT: rales , rhonchi, wheezes Cardiovascular exam: PRESENT: RRR, +S1, +S2. ABSENT: diastolic murmur, rubs, systolic murmur Pulses: PRESENT: normal dorsalis pedis pul Vascular exam: PRESENT: normal capillary refill GI/Abdominal exam: PRESENT: normal bowel sounds, soft. ABSENT: distended, guarding, mass, organolmegaly, rebound, tenderness Rectal exam: PRESENT: deferred Extremities exam: PRESENT: full ROM. ABSENT: calf tenderness, clubbing, pedal edema Neurological exam: PRESENT: alert, awake, oriented to person, oriented to place , oriented to time, oriented to situation, CN II-XII grossly intact. ABSENT: motor sensory deficit Psychiatric exam: PRESENT: appropriate affect, normal mood. ABSENT: homicidal ideation, suicidal ideation Skin exam: PRESENT: dry, intact, warm. ABSENT: cyanosis, rash Results Laboratory Results: 12/11/17 06:03 12/11/17 06:03 12/10/17 12/11/17 12/11/17 11:31 06:03 06:03 WBC 5.7 RBC 2.91 L Hgb 9.8 L D Hct 27.6 L MCV 95 MCH 33.5 H MCHC 35.3 RDW 14.4 H Plt Count 318 Seg Neutrophils % 78.8 H Lymphocytes % 11.1 L Monocytes % 9.9 Eosinophils % 0.1 Basophils % 0.1 Absolute Neutrophils 4.5 Absolute Lymphocytes 0.6 Absolute Monocytes 0.6 Absolute Eosinophils 0.0 Absolute Basophils 0.0 Sodium 141.6 Potassium 3.4 L Chloride 110 H Carbon Dioxide 25 Anion Gap 7 BUN 22 H Creatinine 0.89 Est GFR ( Amer) > 60 Est GFR (Non-Af Amer) > 60 Glucose 98 Calcium 8.3 L Magnesium 2.1 Free T4 Free T3 pg/mL Blood Type O POSITIVE Antibody Screen NEGATIVE 12/11/17 06:03 WBC RBC Hgb Hct MCV MCH MCHC RDW Plt Count Seg Neutrophils % Lymphocytes % Monocytes % Eosinophils % Basophils % Absolute Neutrophils Absolute Lymphocytes Absolute Monocytes Absolute Eosinophils Absolute Basophils Sodium Potassium Chloride Carbon Dioxide Anion Gap BUN Creatinine Est GFR ( Amer) Est GFR (Non-Af Amer) Glucose Calcium Magnesium Free T4 1.32 Free T3 pg/mL 1.79 L Blood Type Antibody Screen Impressions: Abdomen/Pelvis CT 12/04/17 15:40 IMPRESSION: 1. Distended gallbladder with some small gallstones. 2. 5 cm left ovarian cyst. Recommend follow-up pelvic ultrasound. Chest CT 12/04/17 18:00 IMPRESSION: Pulmonary emphysema with right upper lobe and middle lobe pneumonia. Chest X-Ray 12/07/17 00:00 IMPRESSION: Bullous emphysema. Airspace consolidation right upper and right middle lobe consistent with pneumonia . Qualifiers - * PATIENT BEING DISCHARGED WITH ANY OF THE FOLLOWING DIAGNOSIS: No Plan Time Spent: Greater than 30 Minutes
[2017-12-11 14:27] VITALS: BP 90/55
== END 2017-12-11 15:35 | disposition home or self-care (01) | DRG 871 ==
LOC: ER 13:15 → EH 18:26 → 3S 12-05 13:19
PROVIDERS: ADMIT Internal Medicine; ATTEND Internal Medicine
PROC: 5A09457 Assistance with Respiratory Ventilation, 24-96 Consecutive Hours, Continuous Positive Airway Pressure (ICD-10-PCS; principal; 2017-12-04)
PROC: 3E0F73Z Introduction of Anti-inflammatory into Respiratory Tract, Via Natural or Artificial Opening (ICD-10-PCS; 2017-12-04)
PROC: 30233N1 Transfusion of Nonautologous Red Blood Cells into Peripheral Vein, Percutaneous Approach (ICD-10-PCS; 2017-12-10)
DX: A41.9 Sepsis, unspecified organism (principal); J18.1 Lobar pneumonia, unspecified organism; J96.21 Acute and chronic respiratory failure with hypoxia; N17.9 Acute kidney failure, unspecified; J44.0 Chronic obstructive pulmonary disease with (acute) lower respiratory infection; R65.20 Severe sepsis without septic shock; E86.0 Dehydration; D64.9 Anemia, unspecified; E87.6 Hypokalemia; F17.210 Nicotine dependence, cigarettes, uncomplicated; R94.6 Abnormal results of thyroid function studies; F32.9 Major depressive disorder, single episode, unspecified; K80.80 Other cholelithiasis without obstruction; J43.9 Emphysema, unspecified; N83.202 Unspecified ovarian cyst, left side; B18.2 Chronic viral hepatitis C; R19.7 Diarrhea, unspecified; D50.9 Iron deficiency anemia, unspecified; E83.42 Hypomagnesemia; E05.90 Thyrotoxicosis, unspecified without thyrotoxic crisis or storm; I25.2 Old myocardial infarction; Z99.81 Dependence on supplemental oxygen; Z79.899 Other long term (current) drug therapy; Z80.9 Family history of malignant neoplasm, unspecified
CPT/HCPCS: 36415; 36430; 71045; 71250; 74176; 80048; 80053; 81001; 82607; 82728; 82746; 82803; 83540; 83550; 83605; 83690; 83735; 84439; 84443; 84481; 84484; 85025; 85027; 85045; 86850; 86900; 86901; 86920; 87040; 87045; 87086; 87205; 87493; 93005; 93010; 94640; 94660; 96361; 96365; 96366; 96375; 99285; J1644; J1756; J1940; J1956; J2405; J2543; J3475; J3490; J7030; J7512; J7620; P9016; S0119; S0164